=== PATIENT | male | born 1985 | race African-American/Black ===

== ENCOUNTER 2017-01-21 16:15 | Emergency (ER) | payer MEDICAID, OTHER ==
[~2017-01-21] VITALS: Ht 175.3 cm; Wt 111.1 kg
[~2017-01-21 16:15] MED LIST: ATI.5 PO; ONDA4TAB PO
[2017-01-21 16:29] VITALS: BP 154/113
--- NOTE | 2017-01-21 17:10 | NUR ---
Patient ambulated to bed 8. RN evaluating patient at bedside.
--- NOTE | 2017-01-21 17:12 | NUR ---
31/M BIB C/O HEADACHE X1 MONTH. HX SCHIZOPHRENIA, DM, HTN. PT STATES HE DOES NOT TAKE ANY MEDICATIONS FOR DM & HTN BECAUSE HE CAN CONTROL BY LOSE WT & DIET FOR A YEAR. DENIES N/V/D; SKIN IS PINK/WARM/DRY; AAOX4 WITH EVEN AND STEADY GAIT; LUNGS CLEAR BL; HR EVEN AND REGULAR; PT DENIES ANY FEVER, CP, SOB, OR COUGH AT THIS TIME; PATIENT STATES PAIN OF 10/10 AT THIS TIME; VSS; PATIENT POSITIONED FOR COMFORT; HOB ELEVATED; BEDRAILS UP X2; BED DOWN. ER MD MADE AWARE OF PT STATUS.
[2017-01-21] MEDS ORDERED: KETOROLAC 60 MG/2 ML VIAL IM ONE (17:15)
[2017-01-21] MEDS ORDERED: diphenhydrAMINE 50 MG/ML VIAL IM ONE (17:15)
[2017-01-21] MEDS ORDERED: PROMETHAZINE 25 MG/ML VIAL IM ONE (17:15)
--- NOTE | 2017-01-21 17:50 | NUR ---
PT STATED HEADACHE ; PAIN 5/10, BP 152/83. Patient appears to be resting comfortably in bed. Respirations even and unlabored.WILL CONTINUE TO MONITOR.
--- NOTE | 2017-01-21 18:08 | NUR ---
ER MD DR THOMPSON REEVALUATING PT AT BEDSIDE.
[2017-01-21 18:19] VITALS: BP 152/83
--- NOTE | 2017-01-21 18:20 | NUR ---
Note undone in EDM - 01/21/17 at 1824 by [email or web address] Patient discharged with BP 152/83 ; PT ATATED HEADACHE PAIN FROM 05/16 TO 10/14 AFTER GOT PAIN MEDICINES INJECTION. ER MD NOTIFIED, MD AWARE. Written and verbal after care instructions given and explained. Patient alert, oriented and verbalized understanding of instructions. Ambulatory with steady gait. All questions addressed prior to discharge. ID band removed. Patient advised to follow up with PMD. Rx of TYLENOL WITH CODEINE NO 3 given. Patient educated on indication of medication including possible reaction and side effects. Opportunity to ask questions provided and answered.
--- NOTE | 2017-01-21 18:20 | NUR ---
Patient discharged with BP 152/83 ; PT STATED HEADACHE PAIN FROM 05/16 TO 3 AT THIS TIME. ER MD NOTIFIED, MD AWARE. Written and verbal after care instructions given and explained. Patient alert, oriented and verbalized understanding of instructions. Ambulatory with steady gait. All questions addressed prior to discharge. ID band removed. Patient advised to follow up with PMD. Rx of TYLENOL WITH CODEINE NO 3 given. Patient educated on indication of medication including possible reaction and side effects. Opportunity to ask questions provided and answered.
== END 2017-01-21 18:20 | disposition home or self-care (01) ==
LOC: MED 16:15
DX: G43.909 Migraine, unspecified, not intractable, without status migrainosus (principal); E11.9 Type 2 diabetes mellitus without complications; I10 Essential (primary) hypertension; F20.9 Schizophrenia, unspecified; F17.200 Nicotine dependence, unspecified, uncomplicated
CPT/HCPCS: 96372; 99284; J1200; J1885; J2550